=== PATIENT | female | born 2000 | race Caucasian/White ===

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

== ENCOUNTER → 2020-08-09 | Outpatient (CLI) | payer OTHER | LOC: LAB 15:00 → LAB SHORT 15:00 | DX: N39.0 Urinary tract infection, site not specified (principal) | CPT/HCPCS: 87077; 87086; 87186 ==

== ENCOUNTER 2023-05-09 00:22 | Emergency (ER) | payer OTHER ==
[~2023-05-09] VITALS: Ht 175.3 cm; Wt 81.7 kg
[2023-05-09 00:58] VITALS: BP 144/91
[2023-05-09] MEDS ORDERED: QUETIAPINE FUMA50 M3 (01:04)
[2023-05-09] MEDS ORDERED: SERT50 (01:07)
[2023-05-09] MEDS ORDERED: NORGESTIMATE-E1 EAC2 (01:07)
[2023-05-09 02:11] LABS: Albumin/Globulin Ratio 1.1 (0.8-1.8); Bilirubin, Total 0.6 mg/dL (0.1-1.0); Bun/Creatinine Ratio 15.7 (12.0-20.0); Creatinine, Blood 0.64 mg/dL (0.40-1.00); Globulin, Blood 3.8 g/dL (2.2-4.0); Potassium, Blood 3.7 mmol/L (3.5-5.5); Total Protein, Blood 7.8 g/dL (6.4-8.2)
[2023-05-09 02:18] LABS: BASOPHILS ABSOLUTE AUTO 0.04 K/mm3 (0.00-0.23); BASOPHILS PERCENT AUTO 1 % (0-2); EOSINOPHILS ABSOLUTE AUTO 0.11 K/mm3 (0.00-0.68); EOSINOPHILS PERCENT AUTO 2 % (0-6); Hematocrit 41.7 % (33.0-51.0); Hemoglobin 13.6 g/dL (11.5-16.0); IMMATURE GRAN ABSOLUTE AUTO 0.01 K/mm3 (0.00-0.10); IMMATURE GRAN PERCENT AUTO 0 % (0-1); LYMPHOCYTES PERCENT AUTO 39 % (21-46); MONOCYTES ABSOLUTE AUTO 0.64 K/mm3 (0.16-1.47); MONOCYTES PERCENT AUTO 9 % (4-13); Mean Corpuscular HGB 28.1 pg (26.0-34.0); Mean Corpuscular HGB Conc 32.6 g/dL (31.5-36.5); Mean Corpuscular Volume 86 fL (80-100); Mean Platelet Volume 9.4 fL (9.1-12.4); NEUTROPHILS ABSOLUTE AUTO 3.38 K/mm3 (1.96-9.15); NEUTROPHILS PERCENT AUTO 49 % (41-73); Platelet Count 237 K/mm3 (150-400); RDW Coefficient Variation 12.8 % (11.7-14.2); Red Blood Cell Count 4.84 M/mm3 (3.80-5.20); White Blood Cell Count 6.88 K/mm3 (4.00-11.30)
[2023-05-09 02:42] LABS: Source, Urine Clean Catch
[2023-05-09 02:53] LABS: Bilirubin, Urine Neg (Neg); Blood, Urine 3+ (Neg); Glucose Qualitative, Urine Neg (Neg); Ketones, Urine Neg (Neg); Leukocyte Esterase, Urine Neg (Neg); Nitrite, Urine Neg (Neg); Protein, Urine Neg (Neg); Urobilinogen, Urine NORM (Normal)
[2023-05-09 03:17] LABS: Appearance, Urine Clear (Clear); Color, Urine Pale Yellow (P-Yellow)
[2023-05-09 03:18] LABS: Bacteria Few /hpf; Red Blood Cells, Urine 0-2 /hpf (0-2); Squamous Epithelial Cells Few /hpf (Few); White Blood Cells, Urine 0-2 /hpf (0-5)
[2023-05-09] MEDS ORDERED: Ibuprofen600 MG PO (04:00)
== END 2023-05-09 04:06 | disposition home or self-care (01) ==
LOC: ER 00:22
PROVIDERS: Emergency Medicine
DX: R10.11 Right upper quadrant pain (principal); Z79.899 Other long term (current) drug therapy; Z79.3 Long term (current) use of hormonal contraceptives
CPT/HCPCS: 80053; 81001; 83690; 84703; 85025; 96374; 99284-25; J1885

== ENCOUNTER → 2023-06-11 | Outpatient (CLI) | payer OTHER ==
[~2023-06-11] MED LIST changes: +Ibuprofen600 MG PO; +NORGESTIMATE-E1 EAC2; +QUETIAPINE FUMA50 M3; +SERT50
== END ==
LOC: LAB SHORT 11:16 → LAB 11:16
PROVIDERS: Family Medicine
DX: Z01.411 Encounter for gynecological examination (general) (routine) with abnormal findings (principal)
CPT/HCPCS: G0123

== ENCOUNTER → 2023-07-30 | Outpatient (CLI) | payer OTHER | END | disposition home or self-care (01) | LOC: LAB 12:08 → LAB SHORT 12:08 | DX: N39.0 Urinary tract infection, site not specified (principal) | CPT/HCPCS: 87077; 87086; 87186 ==

== ENCOUNTER → 2023-12-21 | Outpatient (CLI) | payer OTHER ==
[2023-12-21 19:03] LABS: Source, Urine Clean Catch
[2023-12-21 19:59] LABS: Appearance, Urine Clear (Clear); Bilirubin, Urine Neg (Neg); Blood, Urine 1+ (Neg); Color, Urine Yellow (P-Yellow); Glucose Qualitative, Urine Neg (Neg); Ketones, Urine Neg (Neg); Leukocyte Esterase, Urine Neg (Neg); Nitrite, Urine Neg (Neg); Protein, Urine Neg (Neg); Urobilinogen, Urine NORM (Normal)
[2023-12-21 20:09] LABS: BASOPHILS ABSOLUTE AUTO 0.04 K/mm3 (0.00-0.23); BASOPHILS PERCENT AUTO 1 % (0-2); EOSINOPHILS ABSOLUTE AUTO 0.05 K/mm3 (0.00-0.68); EOSINOPHILS PERCENT AUTO 1 % (0-6); Hematocrit 44.8 % (33.0-51.0); Hemoglobin 14.7 g/dL (11.5-16.0); IMMATURE GRAN ABSOLUTE AUTO 0.02 K/mm3 (0.00-0.10); IMMATURE GRAN PERCENT AUTO 0 % (0-1); LYMPHOCYTES ABSOLUTE AUTO 1.52 K/mm3 (0.84-5.20); LYMPHOCYTES PERCENT AUTO 20 % (21-46); MONOCYTES ABSOLUTE AUTO 0.66 K/mm3 (0.16-1.47); MONOCYTES PERCENT AUTO 9 % (4-13); Mean Corpuscular HGB 28.8 pg (26.0-34.0); Mean Corpuscular HGB Conc 32.8 g/dL (31.5-36.5); Mean Corpuscular Volume 88 fL (80-100); Mean Platelet Volume 10.1 fL (9.1-12.4); NEUTROPHILS ABSOLUTE AUTO 5.28 K/mm3 (1.96-9.15); NEUTROPHILS PERCENT AUTO 70 % (41-73); Platelet Count 242 K/mm3 (150-400); RDW Coefficient Variation 12.5 % (11.7-14.2); RDW Standard Deviation 40.5 fL (35.1-46.3); White Blood Cell Count 7.57 K/mm3 (4.00-11.30)
[2023-12-21 20:57] LABS: Bacteria Mod /hpf; Red Blood Cells, Urine 0-2 /hpf (0-2); Squamous Epithelial Cells Rare /hpf (Few); White Blood Cells, Urine 0-2 /hpf (0-5)
[2023-12-24 08:27] LABS: HEPATITIS B SURFACE ANTIGEN Negative (Negative)
[2023-12-24 09:14] LABS: HIV 1,2 COMBO ANTIGEN/ANTIBODY Negative (Negative)
[2023-12-24 09:35] LABS: HEPATITIS C AB CIA INTERP Negative (Negative); HEPATITIS C ANTIBODY CIA INDEX <0.02 IV
== END | disposition home or self-care (01) ==
LOC: LAB SHORT 18:59 → LAB 18:59
PROVIDERS: Registered Nurse Community Health
DX: Z34.91 Encounter for supervision of normal pregnancy, unspecified, first trimester (principal)
CPT/HCPCS: 81001; 84443; 86803; 87086; 87340; 87389

== ENCOUNTER → 2024-05-26 | Outpatient (CLI) | payer OTHER ==
[2024-05-26 19:42] LABS: BASOPHILS ABSOLUTE AUTO 0.01 K/mm3 (0.00-0.23); BASOPHILS PERCENT AUTO 0 % (0-2); EOSINOPHILS ABSOLUTE AUTO 0.08 K/mm3 (0.00-0.68); EOSINOPHILS PERCENT AUTO 1 % (0-6); Hematocrit 33.7 % (33.0-51.0); Hemoglobin 10.8 g/dL (11.5-16.0); IMMATURE GRAN ABSOLUTE AUTO 0.11 K/mm3 (0.00-0.10); IMMATURE GRAN PERCENT AUTO 1 % (0-1); LYMPHOCYTES ABSOLUTE AUTO 1.53 K/mm3 (0.84-5.20); LYMPHOCYTES PERCENT AUTO 18 % (21-46); MONOCYTES ABSOLUTE AUTO 0.72 K/mm3 (0.16-1.47); MONOCYTES PERCENT AUTO 9 % (4-13); Mean Corpuscular HGB 27.8 pg (26.0-34.0); Mean Corpuscular Volume 87 fL (80-100); NEUTROPHILS ABSOLUTE AUTO 5.91 K/mm3 (1.96-9.15); NEUTROPHILS PERCENT AUTO 71 % (41-73); Platelet Count 226 K/mm3 (150-400); RDW Coefficient Variation 14.1 % (11.7-14.2); RDW Standard Deviation 44.8 fL (35.1-46.3); Red Blood Cell Count 3.89 M/mm3 (3.80-5.20); White Blood Cell Count 8.36 K/mm3 (4.00-11.30)
[2024-05-26 19:58] LABS: Albumin, Blood 2.8 g/dL (3.4-5.0); Albumin/Globulin Ratio 0.7 (0.8-1.8); Bilirubin, Total 0.5 mg/dL (0.1-1.0); Bun/Creatinine Ratio 22.4 (12.0-20.0); Calcium, Blood 8.9 mg/dL (8.5-10.1); Creatinine, Blood 0.31 mg/dL (0.40-1.00); Globulin, Blood 3.9 g/dL (2.2-4.0); Potassium, Blood 3.6 mmol/L (3.5-5.5); Total Protein, Blood 6.7 g/dL (6.4-8.2)
== END | disposition home or self-care (01) ==
LOC: LAB SHORT 18:48 → LAB 18:48
PROVIDERS: Registered Nurse Community Health
DX: O16.9 Unspecified maternal hypertension, unspecified trimester (principal)
CPT/HCPCS: 80053; 85025

== ENCOUNTER → 2024-05-28 | Outpatient (CLI) | payer OTHER ==
[2024-05-28 08:08] LABS: Protein, Urine Quantitative 14.7 mg/dL (0.0-11.9)
== END | disposition home or self-care (01) ==
LOC: LAB SHORT 06:00
PROVIDERS: Registered Nurse Community Health
DX: O16.9 Unspecified maternal hypertension, unspecified trimester (principal)
CPT/HCPCS: 84156

== ENCOUNTER → 2024-07-07 | Outpatient (CLI) | payer OTHER ==
[2024-07-07 17:28] LABS: BASOPHILS ABSOLUTE AUTO 0.01 K/mm3 (0.00-0.23); BASOPHILS PERCENT AUTO 0 % (0-2); EOSINOPHILS ABSOLUTE AUTO 0.03 K/mm3 (0.00-0.68); EOSINOPHILS PERCENT AUTO 1 % (0-6); Hemoglobin 10.8 g/dL (11.5-16.0); IMMATURE GRAN ABSOLUTE AUTO 0.09 K/mm3 (0.00-0.10); IMMATURE GRAN PERCENT AUTO 2 % (0-1); LYMPHOCYTES ABSOLUTE AUTO 0.66 K/mm3 (0.84-5.20); LYMPHOCYTES PERCENT AUTO 11 % (21-46); MONOCYTES ABSOLUTE AUTO 0.69 K/mm3 (0.16-1.47); MONOCYTES PERCENT AUTO 12 % (4-13); Mean Corpuscular HGB 26.3 pg (26.0-34.0); Mean Corpuscular HGB Conc 31.8 g/dL (31.5-36.5); Mean Corpuscular Volume 83 fL (80-100); Mean Platelet Volume 10.1 fL (9.1-12.4); NEUTROPHILS ABSOLUTE AUTO 4.46 K/mm3 (1.96-9.15); NEUTROPHILS PERCENT AUTO 75 % (41-73); Platelet Count 206 K/mm3 (150-400); RDW Coefficient Variation 15.6 % (11.7-14.2); RDW Standard Deviation 46.5 fL (35.1-46.3); Red Blood Cell Count 4.11 M/mm3 (3.80-5.20); White Blood Cell Count 5.94 K/mm3 (4.00-11.30)
[2024-07-07 18:52] LABS: Albumin, Blood 2.8 g/dL (3.4-5.0); Albumin/Globulin Ratio 0.8 (0.8-1.8); Bilirubin, Total 0.9 mg/dL (0.1-1.0); Bun/Creatinine Ratio 11.5 (12.0-20.0); Calcium, Blood 9.1 mg/dL (8.5-10.1); Creatinine, Blood 0.43 mg/dL (0.40-1.00); Globulin, Blood 3.6 g/dL (2.2-4.0); Potassium, Blood 3.6 mmol/L (3.5-5.5); Total Protein, Blood 6.4 g/dL (6.4-8.2)
[2024-07-09 15:39] LABS: BILE ACID-URSODEOXYCHOLIC ACID 0.3 umol/L (0.0-1.0); BILE ACIDS - CHENODEOXYCHOLIC 1.8 umol/L (0.0-3.4); BILE ACIDS - CHOLIC ACID 0.9 umol/L (0.0-1.9); BILE ACIDS - DEOXYCHOLIC ACID 2.5 umol/L (0.0-2.5); TOTAL BILE ACIDS 5.5 umol/L (0.0-7.0)
== END ==
LOC: LAB 14:40 → LAB SHORT 14:40
PROVIDERS: Registered Nurse Community Health
DX: O26.643 Intrahepatic cholestasis of pregnancy, third trimester (principal)
CPT/HCPCS: 80053; 83789; 85025

== ENCOUNTER → 2024-07-09 | Outpatient (CLI) | payer OTHER | LOC: LAB SHORT 16:39 → LAB 16:39 | DX: Z34.93 Encounter for supervision of normal pregnancy, unspecified, third trimester (principal) | CPT/HCPCS: 87081; 87150 ==

== ENCOUNTER 2024-07-26 13:52 | Inpatient (IN) | payer OTHER ==
[2024-07-26] VITALS (28 sets, daily range): BP systolic 109–144; BP diastolic 58–88
[~2024-07-26] VITALS: Ht 175.3 cm; Wt 107.7 kg
[2024-07-26] MEDS ORDERED: Acetaminophen 500 MG Tab PO PRN (14:40)
[2024-07-26] MEDS ORDERED: Misoprostol 200 MCG Tab PR PRN (14:40)
[2024-07-26] MEDS ORDERED: Carboprost Tromethamine 250 MCG/ML 1ML Amp IM PRN (14:40)
[2024-07-26] MEDS ORDERED: Calcium Carbonate 500 MG Tab Chew PO PRN (14:40)
[2024-07-26] MEDS ORDERED: FentaNYL 2mcg/ml-Bup 0.1% Epd 250 ML EPI PRN (14:40)
[2024-07-26] MEDS ORDERED: Methylergonovine Maleate 0.2MG / ML 1ML Amp IM PRN (14:40)
[2024-07-26] MEDS ORDERED: ePHEDrine Sulfate 50 MG/ML 1ML Injection XX PRN (14:40)
[2024-07-26] MEDS ORDERED: OXYTOCIN/RINGER'S LACTATE 500 ML IV PRN (14:40)
[2024-07-26] MEDS ORDERED: Misoprostol 200 MCG Tab BC PRN (14:40)
[2024-07-26] MEDS ORDERED: Lactated Ringer's 1,000 ML IV SCH ×3 (14:40→15:20)
[2024-07-26] MEDS ORDERED: Lactated Ringer's 1,000 ML IV PRN (14:40)
[2024-07-26] MEDS ORDERED: Oxytocin 10 Unit / ML Vial IM PRN (14:40)
[2024-07-26] MEDS ORDERED: Ondansetron HCl 2 MG / ML 2ML Vial IV PRN ×2 (14:40→17:15)
[2024-07-26] MEDS ORDERED: Tranexamic Acid 100 ML IV PRN (14:45)
[2024-07-26] MEDS ORDERED: ZYRTEC10 M2 PO (14:46)
[2024-07-26] MEDS ORDERED: PRENATAL TABLE1 EAC2 PO (14:46)
[2024-07-26] MEDS ORDERED: FentaNYL Citrate 50 MCG/ML 2 ML Injection ONE (14:58)
[2024-07-26] MEDS ORDERED: FentaNYL Citrate 50 MCG/ML 2 ML Injection IV PRN (15:05)
[2024-07-26 15:30] LABS: BASOPHILS ABSOLUTE AUTO 0.03 K/mm3 (0.00-0.23); BASOPHILS PERCENT AUTO 0 % (0-2); EOSINOPHILS ABSOLUTE AUTO 0.03 K/mm3 (0.00-0.68); EOSINOPHILS PERCENT AUTO 0 % (0-6); Hematocrit 35.1 % (33.0-51.0); IMMATURE GRAN ABSOLUTE AUTO 0.08 K/mm3 (0.00-0.10); IMMATURE GRAN PERCENT AUTO 1 % (0-1); LYMPHOCYTES ABSOLUTE AUTO 1.25 K/mm3 (0.84-5.20); LYMPHOCYTES PERCENT AUTO 10 % (21-46); MONOCYTES ABSOLUTE AUTO 1.32 K/mm3 (0.16-1.47); MONOCYTES PERCENT AUTO 10 % (4-13); Mean Corpuscular HGB 25.7 pg (26.0-34.0); Mean Corpuscular HGB Conc 31.3 g/dL (31.5-36.5); Mean Corpuscular Volume 82 fL (80-100); Mean Platelet Volume 9.9 fL (9.1-12.4); NEUTROPHILS ABSOLUTE AUTO 9.93 K/mm3 (1.96-9.15); NEUTROPHILS PERCENT AUTO 79 % (41-73); Platelet Count 211 K/mm3 (150-400); RDW Coefficient Variation 15.9 % (11.7-14.2); RDW Standard Deviation 46.9 fL (35.1-46.3); Red Blood Cell Count 4.28 M/mm3 (3.80-5.20); White Blood Cell Count 12.64 K/mm3 (4.00-11.30)
[2024-07-26] MEDS ORDERED: Metoclopramide HCl 5MG / ML 2ML Vial IV PRN (17:15)
[2024-07-26] MEDS ORDERED: ePHEDrine Sulfate 50 MG/ML 1ML Injection IV PRN (17:15)
[2024-07-26] MEDS ORDERED: Naloxone HCl 0.4MG / ML 1ML Vial IV PRN (17:15)
[2024-07-27] VITALS (14 sets, daily range): BP systolic 113–130; BP diastolic 55–75
[2024-07-27] MEDS ORDERED: Ketorolac Tromethamine 30mg Vial IV PRN (01:00)
[2024-07-27] MEDS ORDERED: Rho(D) Immune Globulin 300 MCG / SYR IM ONE (01:00)
[2024-07-27] MEDS ORDERED: Methylergonovine Maleate 0.2MG / ML 1ML Amp IM PRN (01:05)
[2024-07-27] MEDS ORDERED: Ibuprofen 400 MG Tab PO PRN (01:05)
[2024-07-27] MEDS ORDERED: Lactated Ringer's 1,000 ML IV SCH (01:05)
[2024-07-27] MEDS ORDERED: Measles/Mumps/Rubella Vaccine 0.5 ML Vial SC SCH (01:05)
[2024-07-27] MEDS ORDERED: Misoprostol 200 MCG Tab PR PRN (01:05)
[2024-07-27] MEDS ORDERED: Lanolin Cream TOP PRN (01:05)
[2024-07-27] MEDS ORDERED: Oxytocin 10 Unit / ML Vial IM ONE (01:05)
[2024-07-27] MEDS ORDERED: FLU VACC TS2024-25(6MOS UP)/PF 45 MCG/0.5 ML SYRINGE IM ONE (01:10)
[2024-07-27] MEDS ORDERED: Acetaminophen 325 MG TABLET PO PRN (01:10)
[2024-07-27] MEDS ORDERED: Docusate Sodium 100 MG Cap PO PRN (01:10)
[2024-07-27] MEDS ORDERED: Acetaminophen/Codeine 300-30 mg PO PRN (01:10)
[2024-07-27] MEDS ORDERED: Benzocaine Topical Anesthetic Spray 60GM TOP PRN (01:10)
[2024-07-27] MEDS ORDERED: Witch Hazel/Glycerin PADS TOP PRN (01:10)
[2024-07-27] MEDS ORDERED: OXYTOCIN/RINGER'S LACTATE 500 ML IV SCH (01:10)
[2024-07-27] MEDS ORDERED: Diphth,Pertuss(Acell),Tet Vac 0.5 ML VIAL IM SCH (01:15)
--- NOTE | 2024-07-27 02:38 | NUR ---
pt up to visit NB in nursery from labor room. jose luis phillips CNM okay with pt to wheel down in wheel chair to visit nb during the recovery time. RN checked on pt in nursery to do fundal rub and assess bleeding.
[2024-07-27 07:56] LABS: BASOPHILS ABSOLUTE AUTO 0.01 K/mm3 (0.00-0.23); BASOPHILS PERCENT AUTO 0 % (0-2); EOSINOPHILS ABSOLUTE AUTO 0.02 K/mm3 (0.00-0.68); EOSINOPHILS PERCENT AUTO 0 % (0-6); Hematocrit 30.1 % (33.0-51.0); Hemoglobin 9.5 g/dL (11.5-16.0); IMMATURE GRAN ABSOLUTE AUTO 0.07 K/mm3 (0.00-0.10); IMMATURE GRAN PERCENT AUTO 1 % (0-1); LYMPHOCYTES ABSOLUTE AUTO 1.36 K/mm3 (0.84-5.20); LYMPHOCYTES PERCENT AUTO 10 % (21-46); MONOCYTES ABSOLUTE AUTO 1.25 K/mm3 (0.16-1.47); MONOCYTES PERCENT AUTO 9 % (4-13); Mean Corpuscular HGB Conc 31.6 g/dL (31.5-36.5); Mean Corpuscular Volume 82 fL (80-100); Mean Platelet Volume 10.6 fL (9.1-12.4); NEUTROPHILS ABSOLUTE AUTO 10.66 K/mm3 (1.96-9.15); NEUTROPHILS PERCENT AUTO 80 % (41-73); Platelet Count 189 K/mm3 (150-400); RDW Coefficient Variation 15.9 % (11.7-14.2); Red Blood Cell Count 3.66 M/mm3 (3.80-5.20); White Blood Cell Count 13.37 K/mm3 (4.00-11.30)
[2024-07-27] MEDS ORDERED: Prenatal Vit/FE Fumarate/FA 1 Tab PO SCH (09:00)
--- NOTE | 2024-07-28 | NUR ---
REPORT FROM TANIA LIU, THIS RN TO ASSUME CARE OF PT.
[2024-07-28 00:57] VITALS: BP 122/71
[2024-07-28 03:46] VITALS: BP 116/66
[2024-07-28 07:58] VITALS: BP 131/75
[2024-07-28 13:01] VITALS: BP 129/80
[2024-07-28] MEDS ORDERED: IBUP800 PO (13:55)
--- NOTE | 2024-07-28 15:53 | NUR ---
DISCHARGED PT HOME WITH AT 1510. DISCHARGE EDUCATION GIVEN AND EXPLAINED TO PT. ENCOURAGED AND ANSWERED ALL QUESTIONS. POST FOLLOW UP APPOINTMENT SCHEDULED AND INFO WAS GIVEN TO PT. ENCOURAGED TO CALL WITH ANY QUESTIONS.
--- NOTE | 2024-07-28 16:49 | NUR ---
agree with assessment shelia rnc
== END 2024-07-28 15:29 | disposition home or self-care (01) | DRG 807 ==
LOC: OBS 13:52 → BC 13:54 → OBS 14:35 → BC 14:36
PROVIDERS: ADMIT Registered Nurse Community Health
PROC: 10E0XZZ Delivery of Products of Conception, External Approach (ICD-10-PCS; principal; 2024-07-27)
PROC: 0HQ9XZZ Repair Perineum Skin, External Approach (ICD-10-PCS; 2024-07-27)
PROC: 3E0R3BZ Introduction of Anesthetic Agent into Spinal Canal, Percutaneous Approach (ICD-10-PCS; 2024-07-27)
PROC: 00HU33Z Insertion of Infusion Device into Spinal Canal, Percutaneous Approach (ICD-10-PCS; 2024-07-27)
DX: O99.344 Other mental disorders complicating childbirth (principal); Z37.0 Single live birth; F41.9 Anxiety disorder, unspecified; O99.214 Obesity complicating childbirth; Z90.89 Acquired absence of other organs; Z79.899 Other long term (current) drug therapy; O77.0 Labor and delivery complicated by meconium in amniotic fluid; O69.81X0 Labor and delivery complicated by cord around neck, without compression, not applicable or unspecified; O70.0 First degree perineal laceration during delivery; Z3A.38 38 weeks gestation of pregnancy
CPT/HCPCS: 36415; 51702; 85025; 86850; 86870; 86900; 86901; 88307; 88312; A9270; J1885; J2405; J2590; J3010; J7120

== ENCOUNTER → 2024-08-19 | Outpatient (CLI) | payer OTHER ==
[~2024-08-19] MED LIST changes: +IBUP800 PO; +PRENATAL TABLE1 EAC2 PO; +ZYRTEC10 M2 PO
== END | disposition home or self-care (01) ==
LOC: LAB SHORT 18:46 → LAB 18:46
DX: L72.9 Follicular cyst of the skin and subcutaneous tissue, unspecified (principal)
CPT/HCPCS: 87070; 87075; 87077; 87186; 87205

== ENCOUNTER → 2024-09-08 | Outpatient (CLI) | payer OTHER ==
[2024-09-08 19:19] LABS: Hematocrit 42.8 % (33.0-51.0); Hemoglobin 13.6 g/dL (11.5-16.0); Mean Corpuscular HGB Conc 31.8 g/dL (31.5-36.5); Mean Corpuscular Volume 82 fL (80-100); Mean Platelet Volume 9.9 fL (9.1-12.4); Platelet Count 294 K/mm3 (150-400); RDW Coefficient Variation 16.5 % (11.7-14.2); RDW Standard Deviation 49.2 fL (35.1-46.3); Red Blood Cell Count 5.23 M/mm3 (3.80-5.20)
[2024-09-08 19:50] LABS: Percent Saturation 17.1 % (15.0-50.0)
== END ==
LOC: LAB 18:34 → LAB SHORT 18:34
PROVIDERS: Registered Nurse Community Health
DX: E61.1 Iron deficiency (principal)
CPT/HCPCS: 82728; 83540; 83550; 85027